=== PATIENT | male | born 1950 | race Caucasian/White ===

== ENCOUNTER 2021-09-21 15:58 | Outpatient (CLI) | payer MEDICARE | END 2021-09-21 15:59 | disposition home or self-care (01) | LOC: BICRAD 15:58 | PROVIDERS: ATTEND Student in an Organized Health Care Education/Training Program | DX: M54.50 Low back pain, unspecified (principal); M43.17 Spondylolisthesis, lumbosacral region; M47.816 Spondylosis without myelopathy or radiculopathy, lumbar region | CPT/HCPCS: 72110 ==

== ENCOUNTER 2023-07-25 08:00 | Outpatient (CLI) | payer MEDICARE | END 2023-07-25 08:01 | disposition home or self-care (01) | LOC: PET 08:00 | PROVIDERS: ATTEND Internal Medicine Critical Care Medicine | DX: R91.1 Solitary pulmonary nodule (principal) | CPT/HCPCS: 78815; A9552 ==

== ENCOUNTER 2023-12-12 07:36 | Outpatient (CLI) | payer MEDICARE | END 2023-12-12 07:37 | disposition home or self-care (01) | LOC: BICCT 07:36 | PROVIDERS: ATTEND Internal Medicine Critical Care Medicine | DX: R91.1 Solitary pulmonary nodule (principal); Q85.9 Phakomatosis, unspecified | CPT/HCPCS: 71250 ==